=== PATIENT | male | born 1965 | race Caucasian/White ===

== ENCOUNTER → 2020-03-27 11:17 | Outpatient (CLI) | payer OTHER, SELFPAY ==
--- NOTE | 2020-03-27 11:22 | XR_ITS ---
PROCEDURE: XR FOOT WT BEARING LT 3V CLINICAL INDICATION: pain Foot pain COMPARISON: No exams were available for comparison FINDINGS: No fracture or dislocation. No lytic or blastic change. There is normal mineralization. The joint spaces are well-preserved. No significant degenerative/arthritic changes. No erosive changes evident. Other findings:There is a small well-circumscribed calcific density posterior to the posterior talar process and could represent an old fracture or an atypical os trigonum. IMPRESSION: No acute fracture. Old posterior talar process fracture versus os trigonum Dictated by: Santos Galdamez MD 03/27/2020 14:09 Electronically signed by Santos Galdamez MD in [place] 03/27/2020 14:09
--- NOTE | 2020-03-27 11:22 | XR_ITS ---
PROCEDURE: XR FOOT WT BEARING RT 3V CLINICAL INDICATION: pain COMPARISON: No exams were available for comparison FINDINGS: No fracture or dislocation. No lytic or blastic change. There is normal mineralization. The joint spaces are well-preserved. No significant degenerative/arthritic changes. No erosive changes evident. Other findings:Mildly prominent posterior talar process. Calcaneal spurs present. IMPRESSION: No acute findings. Dictated by: Santos Galdamez MD 03/27/2020 14:16 Electronically signed by Santos Galdamez MD in [place] 03/27/2020 14:16
--- NOTE | 2020-03-27 11:22 | XR_ITS ---
PROCEDURE: XR ANKLE WT BEARING LT MIN 3V CLINICAL INDICATION: pain COMPARISON: XR ANKLE WT BEARING RT MIN 3V from 03/27/2020 FINDINGS: No fracture or dislocation. No lytic or blastic change. There is normal mineralization. The joint spaces are well-preserved. No significant degenerative/arthritic changes. No erosive changes evident. Other findings:There are 2 well-circumscribed calcific densities along the posterior aspect of the talocalcaneal joint and may represent segmented os trigonum is versus an old os trigonum fracture. IMPRESSION: Bipartite os trigonum versus old posterior talar process fracture otherwise negative Dictated by: Santos Galdamez MD 03/27/2020 14:10 Electronically signed by Santos Galdamez MD in [place] 03/27/2020 14:10
--- NOTE | 2020-03-27 11:22 | XR_ITS ---
PROCEDURE: XR ANKLE WT BEARING RT MIN 3V CLINICAL INDICATION: pain Ankle pain COMPARISON: No exams were available for comparison FINDINGS: There is a small calcific density at the tip of the lateral malleolus. This is well-circumscribed and may be due to an old injury. There is some minimal sclerosis along the distal aspect the tibia slightly medial to midline. There is an os trigonum as a normal variant. No fracture or dislocation. IMPRESSION: No acute finding. Suspect old avulsion fracture at the tip of the lateral malleolus Dictated by: Santos Galdamez MD 03/27/2020 14:01 Electronically signed by Santos Galdamez MD in [place] 03/27/2020 14:01
== END ==
PROVIDERS: PCP Family Medicine; Visit Provider Podiatrist
DX: M25.572 Pain in left ankle and joints of left foot (principal); M25.571 Pain in right ankle and joints of right foot
CPT/HCPCS: 73610; 73630

== ENCOUNTER 2020-03-27 11:54 | Outpatient (RCR) | payer OTHER, SELFPAY | END 2020-03-27 12:15 | disposition home or self-care (01) | LOC: PT 11:54 | PROVIDERS: Visit Provider Podiatrist | DX: M25.372 Other instability, left ankle (principal) | CPT/HCPCS: 97760 ==

== ENCOUNTER → 2020-06-13 14:44 | Outpatient (CLI) | payer OTHER, SELFPAY ==
--- NOTE | 2020-06-13 14:44 | MR_ITS ---
PROCEDURE: MR ANKLE LT WO/W CON CLINICAL INDICATION: chronic left ankle pain Chronic ankle pain, ankle instability, possible peroneal tendinitis versus tear, chronic ankle ligament tears, failing conservative treatment, peroneal tendinitis COMPARISON: CR XR ANKLE WT BEARING LT MIN 3V from 03/27/2020 TECHNIQUE: Routine multiplanar multi echo sequences are performed without and with gadolinium enhancement. FINDINGS: The tibiofibular ligaments have an unremarkable appearance. There is an abnormal appearing ATFL consistent with tear of the ATFL with some fluid present at the area of the tear at the talar region. The PT FL appears intact as does the deltoid ligament. The posterior tibialis, flexor hallucis longus, and flexor digitorum longus tendons have an unremarkable appearance as does the Achilles tendon. The peroneal tendons have an abnormal appearance. Distal to the retro malleolar groove there is thickening of the peroneus longus and brevis tendon with increased signal centrally within the peroneus longus tendon suggesting a split tear versus tendon sprain. Small amount fluid is present around the peroneal tendon sheath. There is also increased linear T2 signal within the distal aspect of the peroneus brevis tendon which could also be due to an additional split tear versus tendinopathy/tendinosis. Complete tear is are not felt to be present. IMPRESSION: The 1. Tear of the ATFL with small amount of fluid at the ligament site. 2. There is some thickening of the peroneal tendons proximal to the retro malleolar groove with small amount fluid around the tendon sheath. 3. Split tear/partial tear of the peroneus longus and brevis tendons versus tendinopathy/tendinosis Dictated b Santos Galdamez MD 06/19/2020 11:37 Santos Galdamez MD in [place] 06/19/2020 11:37
== END ==
PROVIDERS: PCP Family Medicine; Visit Provider Podiatrist
DX: M25.372 Other instability, left ankle (principal); M76.72 Peroneal tendinitis, left leg
CPT/HCPCS: 73723; A9576

== ENCOUNTER → 2020-07-17 16:36 | Outpatient (CLI) | payer OTHER, SELFPAY ==
--- NOTE | 2020-07-17 | ECG_ITS ---
APPROVED REPORT Exam: Resting ECG HR:74 bpm ECG Measurements Heart Rate 74 AXES MI 124 P 67 QRSd 76 QRS 45 QT 352 T 38 QTc 390 <Conclusion> Normal sinus rhythm Normal ECG Electronically signed by : Demetrio Chavez, 07/18/2020 12:00:09
--- NOTE | 2020-07-17 | XR_ITS ---
PROCEDURE: XR CHEST 2V CLINICAL HISTORY: Shortness of air COMPARISON: No exams were available for comparison FINDINGS: The cardiomediastinal silhouette and pulmonary vascularity are within normal limits. The lungs are clear without infiltrates, suspicious nodules, or pleural effusions. No acute bony abnormalities. IMPRESSION: No acute findings. Dictated by: Santos Galdamez MD 07/17/2020 22:04 Santos Galdamez MD in [place] 07/17/2020 22:04
[2020-07-17 18:46] LABS: Basophils % 0.3 % (0.1-2.0); Eosinophils # 0.1 K/mm3 (0.0-0.4); Eosinophils % 1.4 % (0.1-12.0); Hematocrit 43.9 % (42.0-52.0); Hemoglobin 14.7 g/dL (14.1-18.0); Lymphocytes # 1.6 K/mm3 (0.7-4.5); Lymphocytes % 22.3 % (10-50); Mean Corpuscular HGB Conc 33.4 g/dL (31.8-35.4); Mean Corpuscular Hemoglobin 33.3 pg (27.0-31.2); Mean Corpuscular Volume 99.5 fl (80-94); Monocytes # 0.6 K/mm3 (0.1-1.0); Monocytes % 7.7 % (1.7-9.3); Neutrophils # 4.9 K/mm3 (1.8-7.8); Neutrophils % 68.3 % (37.0-80.0); Platelet Count 180 K/mm3 (142-424); Red Blood Count 4.41 M/mm3 (4.60-6.20); Red Cell Distribution Width 13.6 % (11.5-17.5); White Blood Count 7.2 K/mm3 (4.8-10.8)
[2020-07-17 18:53] LABS: Alanine Aminotransferase 21 U/L (12-78); Albumin Level 3.9 g/dl (3.5-5.0); Albumin/Globulin Ratio 1.6 (1.1-1.8); Alkaline Phosphatase 99 U/L (38-126); Anion Gap 10.9 mEq/L (5-15); Aspartate Amino Transferase 30 U/L (17-59); Bilirubin,Total 0.6 mg/dl (0.2-1.3); Blood Urea Nitrogen 15 mg/dl (9-20); Calcium 9.5 mg/dl (8.4-10.2); Carbon Dioxide 36 mmol/L (22.0-30.0); Chloride 97 mmol/L (98-107); Estimated Glomerular Filt Rate 78 ml/min (>60); GFR (African American) 94 ML/MIN (>60); Globulin 2.4 g/dL (1.3-3.2); Glucose 68 mg/dl (74-100); Potassium 3.9 mmoL/L (3.5-5.1); Sodium 140 mmol/L (136-145); Total Protein,Serum 6.3 g/dl (6.3-8.2)
[2020-07-17 19:10] LABS: 25-OH Vitamin D, Total 44.7 ng/mL (30-100)
== END ==
PROVIDERS: PCP Family Medicine; Visit Provider Podiatrist
DX: Z01.818 Encounter for other preprocedural examination (principal); M25.372 Other instability, left ankle
CPT/HCPCS: 36415; 71046; 80053; 82306; 85025; 93005

== ENCOUNTER → 2020-07-26 11:58 | Outpatient (CLI) | payer OTHER, SELFPAY ==
[2020-07-26 12:33] LABS: Basophils % 0.4 % (0.1-2.0); Eosinophils # 0.1 K/mm3 (0.0-0.4); Eosinophils % 1.1 % (0.1-12.0); Hematocrit 47.7 % (42.0-52.0); Hemoglobin 15.8 g/dL (14.1-18.0); Lymphocytes # 1.5 K/mm3 (0.7-4.5); Lymphocytes % 20.3 % (10-50); Mean Corpuscular HGB Conc 33.1 g/dL (31.8-35.4); Mean Corpuscular Hemoglobin 32.4 pg (27.0-31.2); Mean Platelet Volume 7.4 fl (7.4-10.4); Monocytes # 0.4 K/mm3 (0.1-1.0); Monocytes % 5.7 % (1.7-9.3); Neutrophils # 5.3 K/mm3 (1.8-7.8); Neutrophils % 72.5 % (37.0-80.0); Platelet Count 183 K/mm3 (142-424); Red Blood Count 4.86 M/mm3 (4.60-6.20); Red Cell Distribution Width 12.8 % (11.5-17.5); White Blood Count 7.3 K/mm3 (4.8-10.8)
[2020-07-26 14:20] LABS: Chloride 99 mmol/L (98-107); Sodium 142 mmol/L (136-145)
[2020-07-26 14:23] LABS: Alanine Aminotransferase 25 U/L (12-78); Albumin Level 4.7 g/dl (3.5-5.0); Albumin/Globulin Ratio 1.8 (1.1-1.8); Alkaline Phosphatase 97 U/L (38-126); Aspartate Amino Transferase 35 U/L (17-59); Bilirubin,Total 0.7 mg/dl (0.2-1.3); Blood Urea Nitrogen 32 mg/dl (9-20); Carbon Dioxide 34 mmol/L (22.0-30.0); Estimated Glomerular Filt Rate 63 ml/min (>60); GFR (African American) 76 ML/MIN (>60); Globulin 2.6 g/dL (1.3-3.2); Total Protein,Serum 7.3 g/dl (6.3-8.2)
[2020-07-26 14:24] LABS: Calcium 10.8 mg/dl (8.4-10.2); Glucose 68 mg/dl (74-100)
[2020-07-26 14:44] LABS: 25-OH Vitamin D, Total 56.3 ng/mL (30-100)
[2020-07-26 14:55] LABS: Coronavirus 19 IgG Antibody Negative (Negative); Coronavirus 19 IgM Antibody Negative (Negative)
== END ==
PROVIDERS: Visit Provider Podiatrist
DX: M25.372 Other instability, left ankle (principal); Z20.828 Contact with and (suspected) exposure to other viral communicable diseases; E55.9 Vitamin D deficiency, unspecified
CPT/HCPCS: 36415; 80053; 82306; 85025; 86328

== ENCOUNTER 2020-07-27 07:44 | Day surgery (SDC) | payer OTHER, SELFPAY ==
[2020-07-25 14:59] VITALS: BMI 21.2
[2020-07-27] VITALS (10 sets, daily range): BP systolic 114–141; BP diastolic 56–78; PULSE 67–86; RESP 15–20; TEMP 36.3–43; O2SAT 95–100
--- NOTE | 2020-07-27 | XR_ITS ---
PROCEDURE: XR ANKLE LT 2V CLINICAL INDICATION: Tendon repair COMPARISON: CR XR ANKLE WT BEARING RT MIN 3V from 03/27/2020 FINDINGS: A single images submitted with the C-arm showing post syndesmotic repair changes with a lateral bone plate at the distal fibula with a translucent fixator and a metallic button medially at the distal tibia. Fluoroscopy time: 35 seconds IMPRESSION: Status post syndesmotic repair with fluoro guidance Dictated by: Santos Galdamez MD 07/27/2020 14:08 Santos Galdamez MD in [place] 07/27/2020 14:08
--- NOTE | 2020-07-27 13:00 | XR_ITS ---
PROCEDURE: XR ANKLE LT MIN 3V CLINICAL INDICATION: Post op ankle stabilization Follow-up ankle surgery COMPARISON: CR XR ANKLE WT BEARING RT MIN 3V from 03/27/2020 CR XR ANKLE WT BEARING LT MIN 3V from 03/27/2020 FINDINGS: Status post syndesmotic repair with lateral distal fibular bone plate with translucent fixator and metallic washer along the medial aspect of the distal tibia with good alignment and preservation of the ankle mortise. Cast is in place and there are skin clips noted. IMPRESSION: Good alignment status post syndesmotic repair of the distal tib fib Dictated by: Santos Galdamez MD 07/27/2020 17:37 Santos Galdamez MD in [place] 07/27/2020 17:37
--- NOTE | 2020-07-27 14:44 | P.PN_ITS ---
[facility] Anesthesia Checklist - Patient Identification Patient Identification: Arm Band, Verbal (Name & ) - Structural Data Admitted From: Home Planned Operative Procedure/s: left ankle repair Consent for Planned Operative Procedure(s) Verified: Yes Verified Documents: History and Physical - NPO Status Verified Time NPO: 00:00 - Chart Verification Results Verified: CBC, BMP - Additional verifications Patient : No Anesthesia Reactions: Yes (NAUSEA) Hx Blood Transfusions: No Blood Transfusion Reaction: No Cephalosporin Allergy: No Previous Colonoscopy: Yes - Cardiovascular Assessment Heart Sounds: S1 & S2 Pulse Strength: Baseline Pulse Rhythm: Regular Peripheral Edema: No - Airway Assessment C-Spine Mobility Assessed: Yes TMJ Mobility Assessed: Yes Dentition: Edentulous - Neurological Assessment Level of Consciousness: Awake, Alert, Appropriate Hx Seizures: No Numbness or tingling in extremities: No - Anesthesia Plan Anesthesia Risk discussed: Yes Anesthesia Plan: Verified ASA Class: II Anesthesia Type: General w/block [facility] History I have reviewed the patient's past medical history: Yes Medical History: Reports:: Anxiety, Depression, Gastroesophageal Reflux Disease(GERD), Hyperlipidemia, Migraine, MRSA Denies:: Cancer, Diabetes Mellitus Type 1, Diabetes Mellitus Type 2, Internal Pacemaker, Seizures *Have you ever received a pneumonia vaccine?: No *Have you received a flu vaccine this season?: No Other Medical History: Reports: Arthritis, Other. Denies: Blood Transfusion Reaction Anesthesia experience/problems:: none Laterality Cases: Right: Arthroscopy Knee, Carpal Tunnel Release Other Surgeries: Yes: Other. No: Pacemaker Amputation: No Fractures: No - *Social History Smoking Status: Former smoker Alcohol Intake: never Alcohol Intake Frequency:: other Substance Use Type: denies use *Occupational Status:: employed Housing: house Household Members: family *Travel in the last 8 weeks: None - Psychiatric History Pschychiatric History:: Reports:: Anxiety, Depression Family Hx:: Cancer
--- NOTE | 2020-07-27 14:45 | HMH.ANESI ---
[facility] Anesthesia Record Part I Intake, IV Amount: 900 Estimated blood loss (mL): 30 Urine output (mL): 0 Blood Products used (#): none Blood Pressure: 122/63 SaO2: 95 Pulse Rate: 86 Respiratory Rate: 18 Temperature: 97.6 F Patient is:: Awake, Stable Stable to PACU at:: 14:36
--- NOTE | 2020-07-27 14:55 | HMH.OPNOTE ---
Date of procedure: 07/27/20 Pre-op Diagnosis:: 1. Left chronic ankle instability 2. Left ATFL tear 3. Left peroneal tendon (brevis) tear 4. Left peroneal tendon (longus) tear 5. Left ankle synovitis 6. Left gastrocnemius equinus 7. Left syndesmosis sprain 8. Left ankle pain 9. Left peroneal retinaculum tear Post-op Diagnosis:: Same Procedure performed:: 1. Left foot peroneal tendon debridement and repair x2 2. Left peroneal tendon anastomosis, application of Graft Jacket 3. Left ankle synovectomy 4. Left repair of anterior talofibular ligament, modified Brostrum lateral ankle ligament stabilization 5. Left ankle medial arthrotomy 6. Left open reduction internal fixation syndesmosis 7. Left gastrocnemius equinus 8. Application of amniotic tissue graft 9. Application of posterior splint Surgeon:: Alicia Hill DPM OPERATIONS RESEARCH ANALYST:: Lb Marx Anesthesia: GETA, regional (Left popliteal nerve block) Estimated blood loss (mL): 30 Clinical Note:: Mr. Herbert is a 54 y/o male who presents with Left Chronic Ankle Instability: X-rays 3 views weightbearing bilateral foot and ankle taken 03/27/2020 evaluated by myself. X-rays show forefoot alignment within normal limits. Mild flexion deformities of the DIPJ and PIPJ noted bilaterally. Accessory navicular bone bilaterally. Bilateral inferior and posterior heel spurs noted. Left posterior heel spur larger than right and right inferior heel spur larger than left. Ankle alignment within normal limits with no evidence of fracture or dislocation. Some mild spurring noted off the medial talus bilaterally. MRI LEFT ANKLE, 06/13/20: FINDINGS: The tibiofibular ligaments have an unremarkable appearance. There is an abnormal appearing ATFL consistent with tear of the ATFL with some fluid present at the area of the tear at the talar region. The PT FL appears intact as does the deltoid ligament. The posterior tibialis, flexor hallucis longus, and flexor digitorum longus tendons have an unremarkable appearance as does the Achilles tendon. The peroneal tendons have an abnormal appearance. Distal to the retro malleolar groove there is thickening of the peroneus longus and brevis tendon with increased signal centrally within the peroneus longus tendon suggesting a split tear versus tendon sprain. Small amount fluid is present around the peroneal tendon sheath. There is also increased linear T2 signal within the distal aspect of the peroneus brevis tendon which could also be due to an additional split tear versus tendinopathy/tendinosis. Complete tear is are not felt to be present. IMPRESSION: 1. Tear of the ATFL with small amount of fluid at the ligament site. 2. There is some thickening of the peroneal tendons proximal to the retro malleolar groove with small amount fluid around the tendon sheath. 3. Split tear/partial tear of the peroneus longus and brevis tendons versus tendinopathy/tendinosis. The patient has some relief of symptoms using Mobic, Voltaren and immobilization in the fracture boot. Rest helps but pain still noted daily. Pain worse with activity and work. Patient works as a mailman and walks [id number] steps and up to 13-16 miles daily. Although pain is somewhat improved the symptoms have not improved and on physical exam patient still has a positive anterior drawer and instability with a unsteady antalgic gait. I explained for long-term standing instability conservative care includes NSAIDs, immobilization, bracing, stretching and physical therapy. Chronic instability and symptoms that do not resolve with conservative care may need to be surgically addressed via tightening ligaments. We discussed surgery in great detail including repairing of the ankle ligaments, debridement and repair of the brevis and longus peroneal tendons. I recommend minimum 6 weeks nonweightbearing then transition to PWB. Realistic may be 3 months healing before he is fully comfortable walking that distance. Patient has failed conservative care. We disc
--- NOTE | 2020-07-27 16:23 | HMH.ANESII ---
[facility] Anesthesia Record Part II Discharge Time: 14:46 Destination: Surgical Day Care (OP Surgery) PACU nurse assessment reviewed?: Yes Patient Condition:: Good Anesthesia Complications:: None Swallowing reflex intact?: Yes Cyanosis?: No Blood Pressure: 114/61 Pulse Rate: 76 Temperature: 97.6 F Mental Status: Alert & Oriented Pain level:: 0 Nausea and/or vomitting:: None Intake, IV Amount: 25
== END 2020-07-27 15:40 | disposition home or self-care (01) ==
PROVIDERS: PCP Family Medicine; Visit Provider Podiatrist
PROC: (CPT 15275; principal; 2020-07-27 09:15)
DX: M24.471 Recurrent dislocation, right ankle (principal); M66.88 Spontaneous rupture of other tendons, other sites; M24.572 Contracture, left ankle; M66.272 Spontaneous rupture of extensor tendons, left ankle and foot
CPT/HCPCS: 15275; 27695; 27829; 27675; 28208; C5275; 73600; 73610; 96374; C1713; C1762; C1776; J2405; Q4107; Q4211

== ENCOUNTER → 2020-08-23 12:35 | Outpatient (CLI) | payer OTHER, SELFPAY ==
--- NOTE | 2020-08-23 12:39 | XR_ITS ---
PROCEDURE: XR ANKLE WT BEARING LT MIN 3V CLINICAL INDICATION: postop pain, fall COMPARISON: CR XR ANKLE WT BEARING RT MIN 3V from 03/27/2020 CR XR ANKLE WT BEARING LT MIN 3V from 03/27/2020 CR XR FOOT WT BEARING LT 3V from 03/27/2020 CR XR ANKLE LT 2V from 07/27/2020 CR XR ANKLE LT MIN 3V from 07/27/2020 CR XR FOOT WT BEARING LT 3V from 08/23/2020 FINDINGS: Status post syndesmotic repair with lateral bone plate at the distal fibula and medial metallic button at the distal tibia. There is good alignment with preservation of the ankle mortise. Small anchor screw is present in the distal aspect of the fibula. These findings are unchanged. The cast has been removed. No acute finding of the foot. There is a type 1 os navicularis. IMPRESSION: Good alignment postsurgical changes as described above. Dictated by: Santos Galdamez MD 08/23/2020 16:33 Santos Galdamez MD in [place] 08/23/2020 16:33
== END ==
PROVIDERS: PCP Family Medicine; Visit Provider Podiatrist
DX: Z98.890 Other specified postprocedural states (principal)
CPT/HCPCS: 73610; 73630

== ENCOUNTER 2020-11-01 15:00 | Outpatient (RCR) | payer OTHER, SELFPAY ==
--- NOTE | 2020-09-13 09:56 | HMH.PTOPEV ---
PT Outpatient Evaluation Rehab PT Outpatient Evaluation Start: 09/13/20 09:07 Freq: Status: Active Protocol: Document 09/13/20 09:45 AIDAN (Rec: 09/13/20 09:56 PHORSURAJ [id number]) Electronically Signed By Isaias Henderson, PT 09/13/20 09:45 Outpatient Therapy Subjective History Subjective History Pt is 54 yowm who presents ~ 7 wks S/P L peroneal tendon repair with lateral ankle fixation. He reports expected post-op pain and stiffness with mild edema remaining. He has intermittent burning, tingling pain in the L foot. He is allowed to begin PWB tomorrow with cam walker. He has PMH of anxiety, depression , HL, migraines, MRSA. Chief Complaint Pain,Stiff Symptom Type Ache,Burning,Tingling Symptoms Relieved By Rest/Positioning,Ice Symptoms Aggravated By Physical Activity Prior Functional Limitations None Current Functional Limitations Standing,Recreation Activity, Walking Symptom Description Constant but Variable Level of pain today (0-10) 2 Pain scale - at its worst (0-10) 6 Ankle/Foot Eval Assistive Device Ambulation Assistive Device Axillary Crutches Palpation Tenderness left Ankle/Foot Palpation Findings Tenderness ATF TTP positive ROM Ankle/Foot Dorsiflexion w/Knee Extended 0 Active Range Motion (degrees) Ankle/Foot Dorsiflexion w/Knee Extended 0-2 Passive Range (degrees) Ankle/Foot Plantar Flexion Active Range 0-40 of Motion (degrees) Ankle/Foot Plantar Flexion Passive Range 0-43 of Motion (degrees) Ankle/Foot Eversion Active Range of 0-4 Motion (degrees) Ankle/Foot Eversion Passive Range of 0-5 Motion (degrees) Ankle/Foot Inversion Active Range of 0-10 Motion (degrees) Ankle/Foot Inversion Passive Range of 0-13 Motion (degrees) MMT Ankle Dorsiflexion Strength Grade 3+ Fair+ Ankle Plantarflexion Strength Grade 3+ Fair+ Foot Eversion Strength Grade 2 Poor Foot Inversion Strength Grade 3+ Fair+ Outpatient Therapy Assessment Impairments Problems/Impairmments Palpation Tenderness,Impaired Range of Motion,Impaired Strength,Impaired Endurance, Impaired Gait Pattern,Impaired Walking,Impaired Standing, Impaired Work Activities, Increa
== END 2020-11-01 15:05 | disposition home or self-care (01) ==
LOC: PT 15:00
PROVIDERS: PCP Family Medicine; Visit Provider Podiatrist
DX: S86.312A Strain of muscle(s) and tendon(s) of peroneal muscle group at lower leg level, left leg, initial encounter; M76.72 Peroneal tendinitis, left leg; M66.88 Spontaneous rupture of other tendons, other sites
CPT/HCPCS: 97010; 97014; 97033; 97035; 97110; 97112; 97140; 97163; 97530; G0283

== ENCOUNTER → 2021-02-19 16:26 | Outpatient (CLI) | payer OTHER, SELFPAY ==
--- NOTE | 2021-02-19 16:30 | XR_ITS ---
PROCEDURE: XR FOOT WT BEARING LT 3V CLINICAL INDICATION: post-op Pain COMPARISON: CR XR FOOT WT BEARING LT 3V from 03/27/2020 CR XR FOOT WT BEARING RT 3V from 03/27/2020 CR XR FOOT WT BEARING LT 3V from 08/23/2020 FINDINGS: No fracture or dislocation. No lytic or blastic change. There is normal mineralization. The joint spaces are well-preserved. No significant degenerative/arthritic changes. No erosive changes evident. Other findings:1 os navicularis IMPRESSION: Negative left foot Dictated by: Santos Galdamez MD 02/19/2021 17:37 Santos Galdamez MD in [place] 02/19/2021 17:37
--- NOTE | 2021-02-19 16:30 | XR_ITS ---
PROCEDURE: XR ANKLE WT BEARING LT MIN 3V CLINICAL INDICATION: post-op pain COMPARISON: CR XR ANKLE WT BEARING LT MIN 3V from 03/27/2020 CR XR ANKLE LT MIN 3V from 07/27/2020 CR XR ANKLE LT 2V from 07/27/2020 CR XR ANKLE WT BEARING LT MIN 3V from 08/23/2020 CR XR CALCANEUS LT MIN 2V from 02/19/2021 FINDINGS: Prior ORIF distal tib fib with lateral fibular bone plate and translucent fixator at the distal tib fib with good alignment. The ankle mortise is preserved. There is an anchor screw within the distal aspect the lateral malleolus. Talar dome has an unremarkable appearance. There is a small os trigonum as well as mildly prominent posterior talar process. Small enthesophyte noted at the Achilles insertion. The calcaneus has an otherwise unremarkable appearance. IMPRESSION: Postsurgical change, no acute finding Dictated by: Santos Galdamez MD 02/19/2021 17:39 Santos Galdamez MD in [place] 02/19/2021 17:39
== END ==
PROVIDERS: PCP Family Medicine; Visit Provider Podiatrist
DX: M25.572 Pain in left ankle and joints of left foot (principal); M25.872 Other specified joint disorders, left ankle and foot; Q66.72 Congenital pes cavus, left foot; Z98.890 Other specified postprocedural states
CPT/HCPCS: 73610; 73630; 73650

== ENCOUNTER 2021-02-20 13:57 | Emergency (ER) | payer OTHER, SELFPAY ==
[2021-02-20 13:57] VITALS: BP 145/79; PULSE 93; RESP 18; TEMP 36.5; O2SAT 95; BMI 24.0
--- NOTE | 2021-02-20 13:58 | XR_ITS ---
PROCEDURE: XR FEMUR RT 2V CLINICAL INDICATION: dog bite Laceration from dog bite COMPARISON: No exams were available for comparison FINDINGS: No fracture or dislocation. No lytic or blastic change. There is normal mineralization. Mild osteoarthritic changes are present at the hip and at the knee. No acute fracture or dislocation. Other findings:Lucency is noted along the soft tissues of the proximal lateral thigh and could be related to underlying laceration. Please correlate with patient's area of injury. Small well-circumscribed calcific densities are present at the tip of the greater trochanter consistent with unfused ossification centers. IMPRESSION: No acute fracture. Lucency of the proximal lateral thigh consistent with laceration Dictated by: Santos Galdamez MD 02/20/2021 14:57 Santos Galdamez MD in [place] 02/20/2021 14:57
--- NOTE | 2021-02-20 13:58 | XR_ITS ---
PROCEDURE: XR HAND RT MIN 3V CLINICAL INDICATION: dog bite Injury with pain COMPARISON: No exams were available for comparison FINDINGS: No fracture or dislocation. No lytic or blastic change. There is normal mineralization. The joint spaces are well-preserved. No significant degenerative/arthritic changes. No erosive changes evident. Other findings:There is some lobularity the skin surface along the ulnar aspect of the wrist and may be related to area of laceration or skin fold. No radiopaque foreign body apparent. IMPRESSION: No acute fracture or radiopaque foreign body. Dictated by: Santos Galdamez MD 02/20/2021 15:02 Santos Galdamez MD in [place] 02/20/2021 15:02
--- NOTE | 2021-02-20 13:58 | XR_ITS ---
PROCEDURE: XR PELVIS 1-2V CLINICAL INDICATION: dog bite Injury with pain COMPARISON: No exams were available for comparison TECHNIQUE: XR Pelvis AP View FINDINGS: No fracture or dislocation is evident. No significant degenerative change. There is a tubular device over the perineal region. IMPRESSION: No acute findings. Dictated by: Santos Galdamez MD 02/20/2021 15:01 Santos Galdamez MD in [place] 02/20/2021 15:01
[2021-02-20 14:30] VITALS: BP 133/66
--- NOTE | 2021-02-20 14:36 | HMH.EDANIB ---
ED Disposition Clinical Impression: Dog bite Disposition: Home, Self-Care Condition on Discharge: Good Instructions: Animal Bites Additional Instructions: Please return to the emergency department or your primary care physician within the next 10 days for suture removal. Take antibiotics as prescribed. Return for any redness warmth or fever or purulent drainage to the site within 24 hours. Prescriptions: Amoxicillin/Potassium Clav [Augmentin 875-125 Tablet] 1 tab PO Q12H 7 Days #14 tab Transmission Status: Pending to [facility] Referrals: Cleveland Piedra [Primary Care Provider] - - Critical Care Critical Care Time: No Attestation: On 02/20/21, the high probability of a clinically significant, sudden or life threatening deterioration of the following system(s) required my full and direct attention, intervention and personal management. The time I documented below is in addition to time spent performing reported procedures but includes the following listed in this critical care notation. Medical Decision Making - Medical Records Medical records reviewed: Yes: I reviewed the patient's medical records. - Joaquín Inquiry Pt receiving controlled substance: No Vital Signs: 02/20/21 13:57 02/20/21 14:30 Temperature 97.7 F Temperature Source Oral Pulse Rate [Right Radial] 93 H Respiratory Rate 18 Blood Pressure 133/66 Blood Pressure [Right Arm] 145/79 H Blood Pressure Mean 95 Blood Pressure Mean [Right Arm] 101 Blood Pressure Source [Right Arm] Automatic Cuff 02 Sat by Pulse Oximetry 95 Oxygen Delivery Method Room Air Orders (Tests/Meds): ED MEDICATIONS Discontinued Medications Generic Name Dose Route Start Last Admin Trade Name Freq PRN Reason Stop Dose Admin Tetanus/Diphtheria Toxoids 0.5 ml 02/20/21 13:59 02/20/21 14:51 Tetanus-Diphth Toxoid, Adult 0.5ml Syr IM 02/20/21 14:00 0.5 ml .ONCE ONE Administration Medical Decision Narrative: 55-year-old male with dog bite. He is right hip hematoma and a right hand laceration. The right hand laceration was complex however extort explored extensively and no evidence of foreign body or bony or tendon or nerve injury. Given strict return precautions for this for possible to likely infection and given antibiotics as well. It did need to be closed however because of the location and the extensive soft tissue damage. X-rays showed no evidence of foreign body or bony abnormality. Tetanus has been updated. Plan to discharge with return precautions antibiotics and follow-up recommendations Animal Bite HPI - General Chief Complaint: Animal Bite Stated Complaint: dog bite Time Seen by Provider: 02/20/21 14:00 Mode of Arrival: EMS Limitations: No Limitations Description of Symptoms (Recalled from ER Triage Doc. by RN): Pt presents to ED after a dog bite while at work. Pt has puncture wounds to R hand, L thigh and R knee. Pt has raised area to L outer thigh with puncture wounds. - History of Present Illness HPI narrative: 55-year-old male presents after pitbull bite. 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 He was bitten on his right hand and also on his right leg. He denies other trauma. He says his last tetanus shot was 10 days ago. No active bleeding at this time. The pain is constant nonradiating mainly in his hand where the laceration is deepest. He has no numbness or tingling to this distal fingertips Onset (ago): hour(s) (1) Animal: dog Mechanism: bite - Related Data Home Medications Medication Instructions Recorded Confirmed atorvastatin 20 mg tablet 20 mg PO DAILY 10/23/19 02/19/21 carbidopa 25 mg-levodopa 100 mg 1 tab PO QHS 10/23/19 02/19/21 tablet gabapentin 800 mg tablet 800 mg PO BID 10/23/19 02/19/21 mirtazapine 45 mg tablet 45 mg PO DAILY 10/23/19 02/19/21 prazosin 2 mg capsule 2 mg PO QHS 10/23/19 02/19/21 testosterone cypionate 200 mg/mL 200 mg IM QMONTH ml 01/14
[2021-02-20 16:04] VITALS: BP 133/66; PULSE 79; RESP 18; TEMP 36.5; O2SAT 95
== END 2021-02-20 16:04 | disposition home or self-care (01) ==
PROVIDERS: Emergency Provider Emergency Medicine; PCP Family Medicine
DX: S61.411A Laceration without foreign body of right hand, initial encounter (principal); S80.212A Abrasion, left knee, initial encounter; W54.0XXA Bitten by dog, initial encounter; Y92.69 Other specified industrial and construction area as the place of occurrence of the external cause; Y99.0 Civilian activity done for income or pay; Z23 Encounter for immunization; F41.8 Other specified anxiety disorders; K21.9 Gastro-esophageal reflux disease without esophagitis; E78.5 Hyperlipidemia, unspecified; Z87.891 Personal history of nicotine dependence
CPT/HCPCS: 12002; 72170; 73130; 73552; 90471; 90714; 99283

== ENCOUNTER → 2021-02-26 13:01 | Outpatient (CLI) | payer OTHER, SELFPAY ==
[2021-02-26 14:44] LABS: Blood Urea Nitrogen 19 mg/dl (9-20); Estimated Glomerular Filt Rate 88 ml/min (>60); GFR (African American) 106 ML/MIN (>60)
== END ==
PROVIDERS: Visit Provider Podiatrist
DX: M76.72 Peroneal tendinitis, left leg (principal)
CPT/HCPCS: 36415; 82565; 84520

== ENCOUNTER → 2021-02-27 13:31 | Outpatient (CLI) | payer OTHER, SELFPAY ==
--- NOTE | 2021-02-27 13:31 | MR_ITS ---
PROCEDURE: MR ANKLE LT WO/W CON CLINICAL INDICATION: rule out 5th met fracture Prior hx ankle surgery July 2020. Continued ankle pain with walking. Evaluate the peroneal tendons. Ankle instability, peroneal tendinitis, Achilles tendinitis, pes cavus, pain COMPARISON: MR MR ANKLE LT WO/W CON from 06/13/2020 CR XR ANKLE WT BEARING LT MIN 3V from 02/19/2021 CR XR FOOT WT BEARING LT 3V from 02/19/2021 TECHNIQUE: Routine multiplanar multi echo sequences are performed without gadolinium enhancement. FINDINGS: Ill-defined increased T2 signal involves the 5th metatarsal suggesting stress reaction with no obvious fracture. There is orthopedic hardware in the distal tibia and fibula from syndesmosis repair. There is a small ankle joint effusion. The tibiofibular syndesmosis appears intact. The ATFL appears thickened with loss of the normal low T2 signal and could be related to prior repair. The PT FL appears intact. The deltoid ligament has an unremarkable appearance. Calcaneofibular ligament is not identified. The posterior tibialis, flexor hallucis longus, flexor digitorum longus, Achilles tendon, and anterior extensor tendons appear intact. Cannot differentiate between the peroneal longus and brevis tendon and may be related to the history of repair and anastomosis. The sinus tarsi and plantar fascia have an unremarkable appearance. IMPRESSION: 1. Suspected stress reaction of the 5th metatarsal. No definite fracture line. 2. Postoperative changes of the peroneal tendons and distal fibular and tibial syndesmosis 3. Abnormal appearance of the ATFL possibly due to scarring or prior repair. Please correlate with clinical findings and surgical history. Dictated by: Santos Galdamez MD 03/09/2021 18:43 Santos Galdamez MD in [place] 03/09/2021 18:43
== END ==
PROVIDERS: PCP Family Medicine; Visit Provider Podiatrist
DX: M76.72 Peroneal tendinitis, left leg (principal)
CPT/HCPCS: 73723; A9576

== ENCOUNTER 2021-04-26 11:27 | Emergency (ER) | payer OTHER, SELFPAY ==
[2021-04-26 11:32] VITALS: BP 136/65; PULSE 98; RESP 18; TEMP 36.8; O2SAT 99; BMI 22.8
[2021-04-26 11:54] VITALS: BMI 22.8
--- NOTE | 2021-04-26 11:55 | XR_ITS ---
PROCEDURE: XR FOOT LT MIN 3V CLINICAL INDICATION: fall Pain COMPARISON: CR XR FOOT WT BEARING LT 3V from 03/27/2020 CR XR FOOT WT BEARING RT 3V from 03/27/2020 CR XR FOOT WT BEARING LT 3V from 08/23/2020 CR XR FOOT WT BEARING LT 3V from 02/19/2021 FINDINGS: There is a nondisplaced transverse fracture involving the proximal aspect of the 5th metatarsal. There is good alignment of the fracture fragments. Postsurgical changes distal tib fib. Other findings:None. IMPRESSION: Nondisplaced fracture proximal aspect of the 5th metatarsal Dictated by: Santos Galdamez MD 04/26/2021 12:12 Santos Galdamez MD in [place] 04/26/2021 12:12
[2021-04-26 12:03] VITALS: BP 123/68; PULSE 76; RESP 17; TEMP 36.8; O2SAT 100; BMI 22.8
[2021-04-26 12:07] VITALS: BP 123/68; PULSE 76; RESP 17; TEMP 36.8; O2SAT 100
--- NOTE | 2021-04-26 12:51 | HMH.EDUTC ---
[facility] [place] Clinical Impression: Metatarsal fracture Qualifiers: Encounter type: initial encounter Metatarsal bone: fifth Fracture type: closed Fracture alignment: nondisplaced Laterality: left Qualified Code(s): S92.355A - Nondisplaced fracture of fifth metatarsal bone, left foot, initial encounter for closed fracture Disposition: Home, Self-Care Condition on Discharge: Good Instructions: DI for Foot Fracture Additional Instructions: Keep appt with Dr Hill next Thursday. Wear walking boot, do not bear weight on foot Referrals: Cleveland Piedra [Primary Care Provider] - Alicia Hill DPM [Staff Physician] - Forms: Work/School Release Time of Disposition: 12:56 Medical Decision Making - Joaquín Inquiry Pt receiving controlled substance: No Vital Signs: 04/26/21 11:32 04/26/21 12:03 04/26/21 12:07 Temperature 98.3 F 98.3 F 98.3 F Temperature Source Oral Oral Pulse Rate 76 Pulse Rate [Left Radial] 98 H 76 Respiratory Rate 18 17 17 Blood Pressure 123/68 Blood Pressure [Left Arm] 136/65 123/68 Blood Pressure Mean [Left Arm] 88 86 Blood Pressure Source [Left Arm] Automatic Cuff Blood Pressure Position [Left Arm] Sitting 02 Sat by Pulse Oximetry 99 100 Oxygen Delivery Method Room Air - Radiology Data #1 Image(s): Foot/Toes Image Reviewed: Yes I have reviewed radiologist's interpretation Preliminary Findings: Abnormal FINDINGS: There is a nondisplaced transverse fracture involving the proximal aspect of the 5th metatarsal. There is good alignment of the fracture fragments. Postsurgical changes distal tib fib. Other findings:None. IMPRESSION: Nondisplaced fracture proximal aspect of the 5th metatarsal - Physician Consults Physician Consulted: Liz Time: 12:45 Reason -: Podiatry Eval/Care Comment/Response: Walking boot, crutches (patient has both), non weight-bearing, patient has appt with her on Thursday already [place] [facility] [place] - General Stated complaint: lt ankle pain Time Seen by Provider: 04/26/21 12:15 Mode of Arrival: Ambulatory Source of Information: Patient Limitations: No Limitations Description of Symptoms (Recalled from Triage Doc. by RN): Pt states that he was walking and his left foot bent forward and he heard a loud popping sound. Pt has a previous stress fracture from 02/20 and surgery on same foot. 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 He stepped from the van, planted his left foot on the ground, went to step forward and had pain in the outer portion of his left foot. He felt and heard a pop. He states that on February 20, he injured this same foot when he was attacked by a dog while delivering mail. He sees Dr Hill regularly for chronic pain in his foot and recently had an MRI that showed a stress fracture of the left 5th metatarsal. Onset (ago): hour(s) (1) Location: left, lower extremity Relieving factors: immobilization Exacerbating factors: movement Treatments prior to arrival: none - Related Data Home Medications Medication Instructions Recorded Confirmed atorvastatin 20 mg tablet 20 mg PO DAILY 10/23/19 03/18/21 carbidopa 25 mg-levodopa 100 mg 1 tab PO QHS 10/23/19 03/18/21 tablet gabapentin 800 mg tablet 800 mg PO BID 10/23/19 03/18/21 mirtazapine 45 mg tablet 45 mg PO DAILY 10/23/19 03/18/21 prazosin 2 mg capsule 2 mg PO QHS 10/23/19 03/18/21 testosterone cypionate 200 mg/mL 200 mg IM QMONTH ml 01/25/20 03/18/21 intramuscular oil propranolol 10 mg tablet 10 mg PO QHS tab 07/05/20 03/18/21 Previous Rx's Medication Instructions Recorded diclofenac sodium 1 % topical gel 4 g TOPICAL QID PRN #30 g 03/27/20 meloxicam 7.5 mg tablet 7.5 mg PO DAILY #30 tab 03/27/20 tr
== END 2021-04-26 13:07 | disposition home or self-care (01) ==
PROVIDERS: Emergency Provider Physician Assistant; PCP Family Medicine
DX: S92.355A Nondisplaced fracture of fifth metatarsal bone, left foot, initial encounter for closed fracture (principal); X50.0XXA Overexertion from strenuous movement or load, initial encounter; Y92.69 Other specified industrial and construction area as the place of occurrence of the external cause; Y99.0 Civilian activity done for income or pay
CPT/HCPCS: 73630; 99202; G0463

== ENCOUNTER → 2021-04-30 16:13 | Outpatient (CLI) | payer OTHER, SELFPAY ==
[2021-04-30 17:17] LABS: Basophils % 0.4 % (0.1-2.0); Eosinophils # 0.1 K/mm3 (0.0-0.4); Eosinophils % 2.8 % (0.1-12.0); Hematocrit 42.6 % (42.0-52.0); Hemoglobin 14.5 g/dL (14.1-18.0); Lymphocytes # 1.7 K/mm3 (0.7-4.5); Lymphocytes % 33.1 % (10-50); Mean Corpuscular Hemoglobin 31.9 pg (27.0-31.2); Mean Corpuscular Volume 93.9 fl (80-94); Mean Platelet Volume 8.1 fl (7.4-10.4); Monocytes # 0.4 K/mm3 (0.1-1.0); Monocytes % 7.8 % (1.7-9.3); Neutrophils # 2.8 K/mm3 (1.8-7.8); Neutrophils % 55.9 % (37.0-80.0); Platelet Count 203 K/mm3 (142-424); Red Blood Count 4.53 M/mm3 (4.60-6.20); Red Cell Distribution Width 13.1 % (11.5-17.5)
[2021-04-30 19:44] LABS: Alanine Aminotransferase 19 U/L (12-78); Albumin Level 4.6 g/dl (3.5-5.0); Albumin/Globulin Ratio 1.9 (1.1-1.8); Alkaline Phosphatase 101 U/L (38-126); Anion Gap 12.4 mEq/L (5-15); Aspartate Amino Transferase 27 U/L (17-59); Bilirubin,Total 0.6 mg/dl (0.2-1.3); Blood Urea Nitrogen 18 mg/dl (9-20); Calcium 9.3 mg/dl (8.4-10.2); Carbon Dioxide 29 mmol/L (22.0-30.0); Chloride 103 mmol/L (98-107); Estimated Glomerular Filt Rate 69 ml/min (>60); GFR (African American) 84 ML/MIN (>60); Globulin 2.4 g/dL (1.3-3.2); Glucose 84 mg/dl (74-100); Potassium 4.4 mmoL/L (3.5-5.1); Sodium 140 mmol/L (136-145)
[2021-04-30 20:01] LABS: 25-OH Vitamin D, Total 41.9 ng/mL (30-100)
== END ==
PROVIDERS: Visit Provider Podiatrist
DX: Z01.818 Encounter for other preprocedural examination (principal); U07.1 COVID-19
CPT/HCPCS: 36415; 80053; 82306; 85025; U0003

== ENCOUNTER → 2021-05-27 08:54 | Outpatient (CLI) | payer OTHER, SELFPAY ==
--- NOTE | 2021-05-27 08:57 | XR_ITS ---
PROCEDURE: XR ANKLE WT BEARING LT MIN 3V CLINICAL INDICATION: ankle pain COMPARISON: CR XR ANKLE LT MIN 3V from 07/27/2020 CR XR ANKLE LT 2V from 07/27/2020 CR XR ANKLE WT BEARING LT MIN 3V from 08/23/2020 CR XR ANKLE WT BEARING LT MIN 3V from 02/19/2021 FINDINGS: Priors syndesmotic repair distal tib fib with lateral fibular bone plate and translucent fixator with medial metallic button at the tibia. [place] screw is present at the distal fibula. There is good alignment. The ankle mortise is preserved and the talar dome has an unremarkable appearance. IMPRESSION: Postsurgical changes with good alignment and no acute finding Dictated by: Santos Galdamez MD 05/27/2021 11:23 Santos Galdamez MD in [place] 05/27/2021 11:23
--- NOTE | 2021-05-27 08:57 | XR_ITS ---
PROCEDURE: XR FOOT WT BEARING LT 3V CLINICAL INDICATION: foot pain Follow-up fracture COMPARISON: CR XR FOOT WT BEARING RT 3V from 03/27/2020 CR XR FOOT WT BEARING LT 3V from 08/23/2020 CR XR FOOT WT BEARING LT 3V from 02/19/2021 CR XR FOOT LT MIN 3V from 04/26/2021 FINDINGS: Nondisplaced transverse fracture once again noted involving the base of the 5th metatarsal at the diaphyseal metaphyseal junction. There is suggestion of some minimal callus formation laterally with some remodeling at the fracture site medially. Fracture line is still visible. There is good alignment. There is a bone plate at the distal fibula by malleolar anchors The joint spaces are well-preserved. No significant degenerative/arthritic changes. No erosive changes evident. Other findings:None. IMPRESSION: Healing nondisplaced 5th metatarsal fracture Dictated by: Santos Galdamez MD 05/27/2021 11:22 Santos Galdamez MD in [place] 05/27/2021 11:22
== END ==
PROVIDERS: PCP Family Medicine; Visit Provider Podiatrist
DX: M79.672 Pain in left foot (principal); M84.375A Stress fracture, left foot, initial encounter for fracture
CPT/HCPCS: 73610; 73630

== ENCOUNTER → 2021-06-24 08:42 | Outpatient (CLI) | payer OTHER, SELFPAY ==
--- NOTE | 2021-06-24 08:47 | XR_ITS ---
PROCEDURE: XR FOOT WT BEARING LT 3V CLINICAL INDICATION: fracture followup COMPARISON: CR XR FOOT WT BEARING LT 3V from 08/23/2020 CR XR FOOT WT BEARING LT 3V from 02/19/2021 CR XR FOOT LT MIN 3V from 04/26/2021 CR XR FOOT WT BEARING LT 3V from 05/27/2021 FINDINGS: Nondisplaced transverse fracture involves the base of the 5th metatarsal at the diaphyseal metaphyseal junction. There is some developing callus formation laterally. Fracture line is still fairly prominent. There is good alignment. Postsurgical changes are present at the ankle. The joint spaces are well-preserved. No significant degenerative/arthritic changes. No erosive changes evident. Other findings:None. IMPRESSION: Healing fracture base of 5th metatarsal Dictated by: Santos Galdamez MD 06/24/2021 10:23 Santos Galdamez MD in [place] 06/24/2021 10:23
== END ==
PROVIDERS: PCP Family Medicine; Visit Provider Podiatrist
DX: S99.192A Other physeal fracture of left metatarsal, initial encounter for closed fracture (principal); T14.8XXA Other injury of unspecified body region, initial encounter
CPT/HCPCS: 73630

== ENCOUNTER → 2021-07-24 09:57 | Outpatient (CLI) | payer OTHER, SELFPAY ==
--- NOTE | 2021-07-24 10:00 | XR_ITS ---
PROCEDURE: XR FOOT WT BEARING LT 3V CLINICAL INDICATION: 5TH MET FX F/U COMPARISON: CR XR FOOT WT BEARING LT 3V from 02/19/2021 CR XR FOOT LT MIN 3V from 04/26/2021 CR XR FOOT WT BEARING LT 3V from 05/27/2021 CR XR FOOT WT BEARING LT 3V from 06/24/2021 FINDINGS: There is a healing nondisplaced transverse fracture involving the proximal shaft of the 5th metatarsal at the proximal diaphyseal region. Developing callus formation noted Fracture line is still visible. Other findings:Postsurgical changes of ankle IMPRESSION: No change nondisplaced healing fracture proximal 5th metatarsal Dictated by: Santos Galdamez MD 07/24/2021 11:58 Santos Galdamez MD in [place] 07/24/2021 11:58
== END ==
PROVIDERS: PCP Family Medicine; Visit Provider Podiatrist
DX: Q66.72 Congenital pes cavus, left foot (principal); S99.192K Other physeal fracture of left metatarsal, subsequent encounter for fracture with nonunion; M84.375K Stress fracture, left foot, subsequent encounter for fracture with nonunion; T14.8XXA Other injury of unspecified body region, initial encounter
CPT/HCPCS: 73630

== ENCOUNTER → 2021-08-09 12:47 | Outpatient (CLI) | payer OTHER, SELFPAY ==
--- NOTE | 2021-08-09 12:48 | CT_ITS ---
PROCEDURE: CT FOOT LT WO CON CLINICAL HISTORY: fracture evaluation Nonhealing fracture COMPARISON: CR XR FOOT WT BEARING LT 3V from 02/19/2021 CR XR FOOT LT MIN 3V from 04/26/2021 CR XR FOOT WT BEARING LT 3V from 07/24/2021 TECHNIQUE: Axial images obtained with sagittal and coronal reformats. All CT scans at the facility use one or more dose reduction, viz: automated exposure control, ma/kV adjustment per patient size (including targeted exams where dose is matched to indication, i.e. head), or iterative reconstruction technique. FINDINGS: There is a transverse fracture involving the proximal shaft of the 5th metatarsal. There is healing of the fracture along its dorsal and medial surface. Fracture line is still visible along its plantar and lateral aspect. Much of the fracture line is still visible. There is some minimal callus formation along the medial aspect of the fracture site. There is good alignment of the fracture fragments There has been prior syndesmotic repair at the distal tib fib and a small anchor screws present at the distal fibula. There is mild soft tissue swelling at the peroneal tendon area IMPRESSION: Incompletely healing fracture at the base of the 5th metatarsal with good alignment. Dictated by: Santos Galdamez MD 08/09/2021 16:36 Santos Galdamez MD in [place] 08/09/2021 16:36
== END ==
PROVIDERS: PCP Family Medicine; Visit Provider Podiatrist
DX: S92.355K Nondisplaced fracture of fifth metatarsal bone, left foot, subsequent encounter for fracture with nonunion (principal)
CPT/HCPCS: 73700

== ENCOUNTER → 2021-08-26 10:25 | Outpatient (CLI) | payer OTHER, SELFPAY ==
[2021-08-26 10:52] LABS: Basophils % 0.8 % (0.1-2.0); Eosinophils # 0.1 K/mm3 (0.0-0.4); Eosinophils % 1.7 % (0.1-12.0); Hematocrit 45.9 % (42.0-52.0); Hemoglobin 15.6 g/dL (14.1-18.0); Lymphocytes # 1.6 K/mm3 (0.7-4.5); Lymphocytes % 32.8 % (10-50); Monocytes # 0.5 K/mm3 (0.1-1.0); Monocytes % 9.4 % (1.7-9.3); Neutrophils # 2.6 K/mm3 (1.8-7.8); Neutrophils % 55.4 % (37.0-80.0); Platelet Count 192 K/mm3 (142-424); Red Blood Count 4.73 M/mm3 (4.60-6.20); Red Cell Distribution Width 13.6 % (11.5-17.5); White Blood Count 4.8 K/mm3 (4.8-10.8)
--- NOTE | 2021-08-26 10:55 | ECG_ITS ---
APPROVED REPORT Exam: Resting ECG HR:67 bpm ECG Measurements Heart Rate 67 AXES CO 126 P 43 QRSd 80 QRS 87 QT 362 T 19 QTc 382 Conclusion Normal sinus rhythm Normal ECG Electronically signed by : Lb Geronimo MD 08/26/2021 21:19:29
[2021-08-26 11:51] LABS: Alanine Aminotransferase 23 U/L (12-78); Albumin Level 4.2 g/dl (3.5-5.0); Albumin/Globulin Ratio 1.6 (1.1-1.8); Alkaline Phosphatase 112 U/L (38-126); Anion Gap 10.5 mEq/L (5-15); Aspartate Amino Transferase 25 U/L (17-59); Bilirubin,Total 0.5 mg/dl (0.2-1.3); Blood Urea Nitrogen 10 mg/dl (9-20); Calcium 9.5 mg/dl (8.4-10.2); Carbon Dioxide 32 mmol/L (22.0-30.0); Chloride 103 mmol/L (98-107); Estimated Glomerular Filt Rate 78 ml/min (>60); GFR (African American) 94 ML/MIN (>60); Globulin 2.6 g/dL (1.3-3.2); Glucose 94 mg/dl (74-100); Potassium 4.5 mmoL/L (3.5-5.1); Sodium 141 mmol/L (136-145); Total Protein,Serum 6.8 g/dl (6.3-8.2)
== END ==
PROVIDERS: Visit Provider Podiatrist
DX: S92.355K Nondisplaced fracture of fifth metatarsal bone, left foot, subsequent encounter for fracture with nonunion; S99.192K Other physeal fracture of left metatarsal, subsequent encounter for fracture with nonunion; M84.375K Stress fracture, left foot, subsequent encounter for fracture with nonunion; Z01.818 Encounter for other preprocedural examination; Z20.822 Contact with and (suspected) exposure to COVID-19
CPT/HCPCS: 36415; 80053; 85025; 93005; C9803; U0003; U0005

== ENCOUNTER → 2021-09-03 12:26 | Outpatient (CLI) | payer OTHER, SELFPAY | PROVIDERS: Visit Provider Podiatrist | DX: Z01.812 Encounter for preprocedural laboratory examination (principal); S92.355K Nondisplaced fracture of fifth metatarsal bone, left foot, subsequent encounter for fracture with nonunion; S99.192K Other physeal fracture of left metatarsal, subsequent encounter for fracture with nonunion; Z20.822 Contact with and (suspected) exposure to COVID-19 | CPT/HCPCS: 36415; C9803; U0003; U0005 ==

== ENCOUNTER 2021-09-04 06:08 | Day surgery (SDC) | payer OTHER, SELFPAY ==
[2021-08-26 14:00] VITALS: BMI 24.3
[2021-09-04 06:24] VITALS: BP 134/47; PULSE 94; RESP 18; TEMP 36.3; O2SAT 96
--- NOTE | 2021-09-04 07:55 | HMH.ANESCL ---
[facility] Anesthesia Checklist - Structural Data Admitted From: Home Planned Operative Procedure/s: orif l 5th metatarsal Consent for Planned Operative Procedure(s) Verified: Yes - Additional verifications Anesthesia Reactions: Yes (NAUSEA) Hx Blood Transfusions: No Blood Transfusion Reaction: No - Airway Assessment C-Spine Mobility Assessed: Yes TMJ Mobility Assessed: Yes Dentition: Dentures-good fit - Neurological Assessment Level of Consciousness: Awake, Alert, Appropriate - Anesthesia Plan Anesthesia Risk discussed: Yes Anesthesia Plan: Verified ASA Class: II Anesthesia Type: MAC w/Block - Preoperative Comments Pre-Operative Comments: pt want nerve block/doesnt want GA. risks and benefits discussed [facility] History I have reviewed the patient's past medical history: Yes Medical History: Reports:: Anxiety, Depression, Gastroesophageal Reflux Disease(GERD), Hyperlipidemia, Migraine, MRSA Denies:: Cancer, Diabetes Mellitus Type 1, Diabetes Mellitus Type 2, Internal Pacemaker, Seizures *Have you ever received a pneumonia vaccine?: No *Have you received a flu vaccine this season?: No Other Medical History: Reports: Arthritis, Other. Denies: Blood Transfusion Reaction Anesthesia experience/problems:: none Laterality Cases: Right: Arthroscopy Knee, Carpal Tunnel Release Other Surgeries: Yes: Other. No: Pacemaker Amputation: No Fractures: No - *Social History Last grade of school completed: High school graduate Smoking Status: Never smoker Alcohol Intake: never Alcohol Intake Frequency:: other Substance Use Type: denies use *Occupational Status:: employed Housing: house Household Members: family *Travel in the last 8 weeks: None - Psychiatric History Pschychiatric History:: Reports:: Anxiety, Depression Family Hx:: Cancer
[2021-09-04 08:07] VITALS: TEMP 43
--- NOTE | 2021-09-04 08:30 | XR_ITS ---
PROCEDURE: XR FOOT LT MIN 3V CLINICAL INDICATION: Post op ORIF COMPARISON: CR XR FOOT WT BEARING LT 3V from 05/27/2021 CR XR FOOT WT BEARING LT 3V from 06/24/2021 CR XR FOOT WT BEARING LT 3V from 07/24/2021 CR XR FOOT LT 2V from 09/04/2021 FINDINGS: Status post ORIF 5th metatarsal fracture in good alignment. A longitudinal screw is present. Fine bony details obscured by the overlying splint. IMPRESSION: Good alignment status post ORIF 5th metatarsal fracture Dictated by: Santos Galdamez MD 09/04/2021 18:16 Santos Galdamez MD in [place] 09/04/2021 18:16
--- NOTE | 2021-09-04 08:47 | XR_ITS ---
PROCEDURE: XR FOOT LT 2V CLINICAL INDICATION: LT 5TH METARSAL FX COMPARISON: CR XR FOOT LT MIN 3V from 04/26/2021 CR XR FOOT WT BEARING LT 3V from 05/27/2021 CR XR FOOT WT BEARING LT 3V from 06/24/2021 CR XR FOOT WT BEARING LT 3V from 07/24/2021 FINDINGS: Fluoroscopy time: 2.17 minutes. A longitudinal screw is placed at the base of the 5th metatarsal stabilizing the proximal 5th metatarsal fracture with good alignment Other findings:None. IMPRESSION: Status post ORIF 5th metatarsal with fluoroscopic assistance Dictated by: Santos Galdamez MD 09/04/2021 18:29 Santos Galdamez MD in [place] 09/04/2021 18:29
[2021-09-04 08:55] VITALS: BP 103/69; PULSE 84; RESP 13; TEMP 36.8; O2SAT 96
[2021-09-04 09:05] VITALS: BP 109/69; PULSE 81; RESP 19; TEMP 36.3; O2SAT 95
--- NOTE | 2021-09-04 09:09 | HMH.OPNOTE ---
Date of procedure: 09/04/21 Pre-op Diagnosis:: 1. 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 Pes cavus Post-op Diagnosis:: Same Procedure performed:: 1. Left 5th metatarsal fracture ORIF 2. Left 5th met fracture non-union revision 3. Left calcaneal autograft bone harvest (bone marrow aspirate) 4. Left eliecer of graft 5. Left application of posterior splint Surgeon:: Alicia Hill DPM WAXER TENDER:: Kwame Means Anesthesia: MAC, regional (Left popliteal block) Estimated blood loss (mL): 5 Clinical Note:: Pre-op: Patient is a 55M with a history of left peroneal tendon tear s/p repair. Most recently he had a stress fracture of the left 5th metatarsal, seen on MRI 02/27/21. He was being treated conservatively. Patient did get the left custom AFO from [facility]. He has not worn yet due to fracture injury. At work 04/26 from twisted the foot on a curb of the sidewalk and heard a pop. He went to [facility] that day. Left foot x-rays 3 views taken 04/26/21, evaluated by myself. Report noted. FINDINGS: There is a nondisplaced transverse fracture involving the proximal aspect of the 5th metatarsal. There is good alignment of the fracture fragments. Postsurgical changes distal tib fib. Other findings: None. IMPRESSION: Nondisplaced fracture proximal aspect of the 5th metatarsal. Plan was for ORIF fifth metatarsal however patient tested positive for Covid. Decision made to treat conservatively. Has had subsequent x-rays 06/24 and 07/25/2021 which show no change to the fracture. Recent CT 08/09/2021 shows incomplete healing of the fracture. Given an injury was 04/26/2021 and patient has still not made progress with 100% bone stimulator usage compliance, we discussed surgery. All risks and benefits were discussed including but not limited to: damage to blood vessels and nerves, bleeding, infection, wound complications, delayed, mal or non-union of bone, post-traumatic arthritis, need for further surgery, implant failure, need for removal of implant, prolonged or permanent swelling of the extremity, prolonged or permanent pain or deformity, CRPS/RSD, DVT/PE, and anesthetic complications including . No guarantees were given. All questions fully answered. The patient verbalized understanding and agreed to proceed with surgery. Consent was obtained. Medical clearance-saw PCP, Dr. Cleveland Piedra 07/12/21. Has a fracture boot, crutches and walker at home. Operative findings:: Left fifth metatarsal [place] fracture nonunion. On the lateral cortex there was no healing evident. Some healing noted to the medial cortex, fibrotic callus noted. Bone was soft. No signs of infection. Pes cavus deformity with thickened callus skin under the plantar lateral fifth metatarsal. Operative note:: On this date and time patient was deemed an appropriate surgical candidate. With informed consent signed, pre-op regional popliteal block given by anesthesia. The patient was taken to the operating theater. The patient was positioned supine. General anesthesia was induced. IV Ancef given. Tourniquet was applied to the left mid-calf. The left lower extremity was prepped and draped in normal sterile fashion. Left Calcaneal Autograft [place], Bone Marrow Aspiration: Attention was directed to the lateral foot, where intra-op fluoroscopy was used to map out the 5th metatarsal base on both the AP, MO and lateral views. 15 blade was used to make a stab incision over the calcaneal body under intraoperative fluoroscopy. Dissection down to level of bone. In standard technique Accumed bone graft harvester drill inserted and some bone was extracted. It was mixed with BMA mix. 6 cc of blood was withdrawn, mixed with Ignite for BMA to insert into nonunion site. Left 5th Metatarsal Non-union, [place] Fracture ORIF: Attention was directed to the lateral foot, where intra-op fluoroscopy was used to map out the 5th metatarsal base on both the AP, MO and lateral views. 15' blade to make an incision directly over the fracture site. Some call
[2021-09-04 09:20] VITALS: BP 110/69; PULSE 75; RESP 17; O2SAT 96
--- NOTE | 2021-09-04 10:01 | SUR.OPER ---
[id number] family notified of start of procedure
== END 2021-09-04 09:28 | disposition home or self-care (01) ==
LOC: OR 06:09
PROVIDERS: PCP Family Medicine; Visit Provider Podiatrist
PROC: (CPT 28322; principal; 2021-09-04 07:30)
DX: S92.355K Nondisplaced fracture of fifth metatarsal bone, left foot, subsequent encounter for fracture with nonunion (principal); S99.192K Other physeal fracture of left metatarsal, subsequent encounter for fracture with nonunion; M79.605 Pain in left leg; M79.672 Pain in left foot; Y92.69 Other specified industrial and construction area as the place of occurrence of the external cause; W10.1XXD Fall (on)(from) sidewalk curb, subsequent encounter
CPT/HCPCS: 28322; 73620; 73630; 76000; 96374; C1713; C1762; J2704

== ENCOUNTER → 2021-10-16 13:22 | Outpatient (CLI) | payer OTHER, SELFPAY ==
--- NOTE | 2021-10-16 13:26 | XR_ITS ---
PROCEDURE: XR FOOT WT BEARING LT 3V CLINICAL INDICATION: post-op COMPARISON: CR XR FOOT WT BEARING LT 3V from 06/24/2021 CR XR FOOT WT BEARING LT 3V from 07/24/2021 CR XR FOOT LT MIN 3V from 09/04/2021 CR XR FOOT LT 2V from 09/04/2021 FINDINGS: Status post screw fixation proximal 5th metatarsal fracture with good alignment. Fracture line is less apparent with some callus formation noted laterally. There is a bone plate along the distal fibula and an anchor screw at the lateral malleolar region IMPRESSION: Good alignment healing fracture status post screw fixation 5th metatarsal Dictated by: Santos Galdamez MD 10/16/2021 15:48 Santos Galdamez MD in [facility] 10/16/2021 15:48
== END ==
PROVIDERS: PCP Family Medicine; Visit Provider Podiatrist
DX: Z98.890 Other specified postprocedural states; S99.192K Other physeal fracture of left metatarsal, subsequent encounter for fracture with nonunion; G89.18 Other acute postprocedural pain; R60.9 Edema, unspecified; M79.672 Pain in left foot; R20.2 Paresthesia of skin; Z02.6 Encounter for examination for insurance purposes
CPT/HCPCS: 73630

== ENCOUNTER → 2021-11-20 12:01 | Outpatient (CLI) | payer OTHER, SELFPAY ==
--- NOTE | 2021-11-20 12:04 | XR_ITS ---
FINAL REPORT CLINICAL HISTORY: follow up fracture/ ORIF COMPARISON: No prior for comparison. FINDINGS: LEFT FOOT FINDINGS: Three weightbearing views demonstrate a screw at the base of the fifth metatarsal. There is a partially healed transverse fracture at the base of the fifth metatarsal. There is a side plate and screws securing the distal fibula. IMPRESSION: Screw securing a healing fracture at the base of the fifth metatarsal. The fracture line remains visible. Continued follow-up is recommended. Reviewed, Interpreted and Dictated by Fitz Akbar MD Transcribed by Erika Negro Authenticated by Fitz Akbar MD on 11/20/2021 03:13:35 PM [facility]
== END ==
PROVIDERS: PCP Family Medicine; Visit Provider Podiatrist
DX: S99.192A Other physeal fracture of left metatarsal, initial encounter for closed fracture (principal); Z98.890 Other specified postprocedural states
CPT/HCPCS: 73630

== ENCOUNTER → 2021-12-23 15:19 | Outpatient (CLI) | payer OTHER, SELFPAY ==
--- NOTE | 2021-12-23 15:23 | XR_ITS ---
FINAL REPORT CLINICAL HISTORY: fracture evaluation COMPARISON: October 16, 2021 FINDINGS: LEFT FOOT: Three views of the left foot were obtained. There is postoperative change to the proximal 5th metatarsal. There is a persistent fracture of the proximal aspect of the 5th metatarsal. There is widening of the fracture line. There is probable fusion medially but lack of fusion laterally. IMPRESSION: Postop change to the 5th metatarsal with interval widening of the fracture line. Reviewed, Interpreted and Dictated by Silver Wu III, MD Transcribed by Wil Vanegas Authenticated by Silver Wu III, MD on 12/24/2021 07:12:50 AM [facility]
== END ==
PROVIDERS: PCP Family Medicine; Visit Provider Podiatrist
DX: S99.192A Other physeal fracture of left metatarsal, initial encounter for closed fracture (principal); Z98.890 Other specified postprocedural states
CPT/HCPCS: 73630

== ENCOUNTER → 2022-01-10 14:41 | Outpatient (CLI) | payer OTHER, SELFPAY ==
--- NOTE | 2022-01-10 14:45 | CT_ITS ---
FINAL REPORT CLINICAL HISTORY: FRACTURE EVALUATION NOT HEALING COMPARISON: Plain radiographs dated September 04, 2021 FINDINGS: CT LEFT FOOT WITHOUT CONTRAST Technique: Axial images through the left foot were performed by computed tomography. Sagittal and coronal reconstruction images were performed. This study was performed with techniques to keep radiation doses as low as reasonably achievable (ALARA). Individualized dose reduction techniques using automated exposure control or adjustment of mA and/or kV according to the patient's size were employed. There is an orthopedic screw through the base of the 5th metatarsal. The fracture line is still visible consistent with partial nonunion. There is sideplate and screws securing the distal fibula. 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 Reviewed, Interpreted and Dictated by Fitz Akbar MD Transcribed by Wil Vanegas Authenticated by Fitz Akbar MD on 01/10/2022 04:36:31 PM [facility]
== END ==
PROVIDERS: PCP Family Medicine; Visit Provider Podiatrist
DX: S99.192A Other physeal fracture of left metatarsal, initial encounter for closed fracture (principal); G89.18 Other acute postprocedural pain; Z98.890 Other specified postprocedural states
CPT/HCPCS: 73700

== ENCOUNTER → 2022-04-10 10:26 | Outpatient (CLI) | payer OTHER, SELFPAY ==
--- NOTE | 2022-04-10 10:33 | XR_ITS ---
FINAL REPORT CLINICAL HISTORY: postop/fracture eval COMPARISON: 12/23/2021 FINDINGS: LEFT FOOT Three views were obtained. Again identified are postoperative changes from ORIF of the 5th metatarsal. The hardware appears intact. There has been only minimal interval healing of the fracture. No new osseous abnormality is identified. There is mild degenerative joint disease which is stable. There are postoperative changes of the ankle. IMPRESSION: Postsurgical changes with minimal interval healing of the fracture. Reviewed, Interpreted and Dictated by Sheeba Escobedo MD Transcribed by Domenica Yun Authenticated by Sheeba Escobedo MD on 04/10/2022 01:19:09 PM [facility]
== END ==
PROVIDERS: PCP Family Medicine; Visit Provider Podiatrist
DX: Z98.890 Other specified postprocedural states; M19.072 Primary osteoarthritis, left ankle and foot; S99.1 Physeal fracture of metatarsal; M77.52 Other enthesopathy of left foot and ankle; M77.42 Metatarsalgia, left foot; M76.72 Peroneal tendinitis, left leg; M25.372 Other instability, left ankle
CPT/HCPCS: 73630

== ENCOUNTER → 2022-09-22 08:17 | Outpatient (CLI) | payer OTHER, SELFPAY ==
--- NOTE | 2022-09-22 08:21 | XR_ITS ---
FINAL REPORT CLINICAL HISTORY: pain, healing FINDINGS: LEFT CALCANEUS 2 views were obtained. There is no acute fracture or dislocation. 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 The joint spaces are intact. There is no soft tissue abnormality. IMPRESSION: Mild Elisa's deformity. No acute bony abnormality. Reviewed, Interpreted and Dictated by Fitz Akbar MD Transcribed by Christi Urrutia Authenticated and [facility]
--- NOTE | 2022-09-22 08:21 | XR_ITS ---
FINAL REPORT CLINICAL HISTORY: pain, healing COMPARISON: 04/10/2022 FINDINGS: LEFT FOOT Three views of the left foot demonstrate no acute fracture or dislocation. There is an orthopedic screw securing a healed fracture deformity at the base of the 5th metatarsal. There is a sideplate and screws securing the distal fibula. There is an accessory navicular. The soft tissues are unremarkable. IMPRESSION: Postoperative changes as above with no acute bony abnormality. Reviewed, Interpreted and Dictated by Fitz Akbar MD Transcribed by Christi Urrutia Authenticated and [facility]
== END ==
PROVIDERS: PCP Family Medicine; Visit Provider Podiatrist
DX: S92.355K Nondisplaced fracture of fifth metatarsal bone, left foot, subsequent encounter for fracture with nonunion (principal); M25.372 Other instability, left ankle; M66.88 Spontaneous rupture of other tendons, other sites; S86.312A Strain of muscle(s) and tendon(s) of peroneal muscle group at lower leg level, left leg, initial encounter; M20.41 Other hammer toe(s) (acquired), right foot; M20.42 Other hammer toe(s) (acquired), left foot; M21.6X1 Other acquired deformities of right foot; M21.6X2 Other acquired deformities of left foot
CPT/HCPCS: 73630; 73650

== ENCOUNTER → 2022-11-13 16:35 | Outpatient (CLI) | payer BC, SELFPAY ==
[2022-11-13 17:12] LABS: Basophils # 0.1 K/mm3 (0-0.2); Basophils % 2.3 % (0.1-2.0); Eosinophils # 0.1 K/mm3 (0.0-0.4); Eosinophils % 1.9 % (0.1-12.0); Hematocrit 42.8 % (42.0-52.0); Hemoglobin 14.2 g/dL (14.1-18.0); Lymphocytes # 1.1 K/mm3 (0.7-4.5); Lymphocytes % 25.4 % (10-50); Mean Corpuscular HGB Conc 33.3 g/dL (31.8-35.4); Mean Corpuscular Volume 96.1 fl (80-94); Monocytes # 0.4 K/mm3 (0.1-1.0); Monocytes % 10.3 % (1.7-9.3); Neutrophils # 2.5 K/mm3 (1.8-7.8); Neutrophils % 60.2 % (37.0-80.0); Platelet Count 203 K/mm3 (142-424); Red Blood Count 4.45 M/mm3 (4.60-6.20); Red Cell Distribution Width 13.1 % (11.5-17.5); White Blood Count 4.2 K/mm3 (4.8-10.8)
[2022-11-15 12:20] LABS: PSA, Free <0.02 ng/mL; Prostate Specific Ag <0.1 ng/mL (0.0-4.0)
[2022-11-24 10:59] LABS: Testosterone, Total, LC/MS 45
== END ==
PROVIDERS: Physician Assistant Medical; PCP Family Medicine; Visit Provider Nurse Practitioner Family
DX: F64.9 Gender identity disorder, unspecified (principal)
CPT/HCPCS: 36415; 84153; 84154; 84403; 85025

== ENCOUNTER → 2023-06-10 16:55 | Outpatient (CLI) | payer BC, SELFPAY ==
--- NOTE | 2023-06-10 16:58 | XR_ITS ---
PROCEDURE INFORMATION: Exam: XR Left Knee Exam date and time: 06/10/2023 4:59 PM Age: 57 years old Clinical indication: Pain; Knee; Left; Additional info: Lt knee pain TECHNIQUE: Imaging protocol: Radiologic exam of the left knee. Views: 3 views. COMPARISON: CR XR CALCANEUS LT MIN 2V 09/22/2022 8:25 AM FINDINGS: Bones/joints: Severe medial joint space narrowing with subchondral sclerosis, radiolucent cystic changes, and mild bone hypertrophy. Lateral joint space is slightly widened probably due to genu varus. Bone hypertrophy affects the posterior patella with slight lateral subluxation of the patella. No fractures, dislocations, or focal bone lesions. No joint effusion. Soft tissues: No soft tissue gas, radiopaque foreign bodies, or masses. IMPRESSION: Moderate to severe osteoarthritis in the left knee, especially the medial compartment.
== END ==
PROVIDERS: PCP Family Medicine; Visit Provider Orthopaedic Surgery
DX: M25.562 Pain in left knee (principal)
CPT/HCPCS: 73562

== ENCOUNTER → 2023-08-13 23:21 | Outpatient (CLI) | payer BC, SELFPAY ==
[2023-08-13 18:43] LABS: Basophils % 0.4 % (0.1-2.0); Eosinophils # 0.1 K/mm3 (0.0-0.4); Eosinophils % 1.1 % (0.1-12.0); Lymphocytes # 1.1 K/mm3 (0.7-4.5); Lymphocytes % 19.5 % (10-50); Mean Corpuscular HGB Conc 32.1 g/dL (31.8-35.4); Mean Corpuscular Hemoglobin 31.3 pg (27.0-31.2); Mean Corpuscular Volume 97.6 fl (80-94); Mean Platelet Volume 9.4 fl (7.4-10.4); Monocytes # 0.4 K/mm3 (0.1-1.0); Monocytes % 7.2 % (1.7-9.3); Neutrophils % 71.8 % (37.0-80.0); Platelet Count 171 K/mm3 (142-424); Red Blood Count 5.43 M/mm3 (4.60-6.20); Red Cell Distribution Width 13.5 % (11.5-17.5); White Blood Count 5.5 K/mm3 (4.8-10.8)
[2023-08-13 18:50] LABS: Alanine Aminotransferase 25 U/L (12-78); Albumin Level 4.4 g/dl (3.5-5.0); Albumin/Globulin Ratio 1.7 (1.1-1.8); Alkaline Phosphatase 119 U/L (38-126); Anion Gap 13.8 mEq/L (5-15); Aspartate Amino Transferase 33 U/L (17-59); Bilirubin,Total 0.7 mg/dl (0.2-1.3); Blood Urea Nitrogen 14 mg/dl (9-20); Calcium 9.3 mg/dl (8.4-10.2); Carbon Dioxide 26 mmol/L (22.0-30.0); Chloride 103 mmol/L (98-107); Chol/HDL Ratio 5.7 (1-3.5); Cholesterol 221 mg/dl (140-200); Estimated Glomerular Filt Rate 69 ml/min (>60); GFR (African American) 83 ML/MIN (>60); Globulin 2.6 g/dL (1.3-3.2); Glucose 96 mg/dl (74-100); HDL Cholesterol 39 mg/dl (40-60); Potassium 3.8 mmoL/L (3.5-5.1); Sodium 139 mmol/L (136-145); Triglycerides 276 mg/dl (30-150); VLDL Cholesterol 55 mg/dL (0-40)
[2023-08-13 19:01] LABS: Direct LDL Cholesterol 135.25 mg/dL (100-129)
[2023-08-13 19:16] LABS: Hemoglobin A1C 5.1 % (4.0-6.0)
[2023-08-13 19:21] LABS: Thyroid Stimulating Hormone 1.61 uIU/mL (0.465-4.68)
== END ==
PROVIDERS: PCP Family Medicine; Visit Provider Student in an Organized Health Care Education/Training Program
DX: R10.9 Unspecified abdominal pain (principal); Z13.29 Encounter for screening for other suspected endocrine disorder; R81 Glycosuria
CPT/HCPCS: 80053; 80061; 83036; 84443; 85025; 87086

== ENCOUNTER → 2023-08-18 06:54 | Outpatient (CLI) | payer BC, SELFPAY ==
--- NOTE | 2023-08-18 07:02 | CT_ITS ---
FINAL REPORT TECHNIQUE: Axial images through the abdomen and pelvis were performed without contrast. This study was performed with techniques to keep radiation doses as low as reasonably achievable, (ALARA). Individualized dose reduction techniques using automated exposure control or adjustment of mA and/or kV according to the patient's size were employed. CLINICAL HISTORY: abd pain, hematuria FINDINGS: ABDOMEN: The lung bases are clear. The heart size is normal. There are several low-attenuation hepatic masses, favor cysts. The spleen is normal. No adrenal mass is identified. The aorta is normal in caliber. There is no significant free fluid or adenopathy. There are multiple less than 3 mm bilateral nonobstructing renal stones. There is no hydronephrosis. PELVIS: The appendix is not identified. The urinary bladder is unremarkable. There is no significant free fluid or adenopathy. IMPRESSION: Bilateral nephrolithiasis. Reviewed, Interpreted and Dictated by Silver Wu III, MD Transcribed by Domenica Yun Authenticated and [facility]
== END ==
PROVIDERS: PCP Family Medicine; Visit Provider Student in an Organized Health Care Education/Training Program
DX: R10.9 Unspecified abdominal pain (principal); R31.9 Hematuria, unspecified; Z87.442 Personal history of urinary calculi
CPT/HCPCS: 74176

== ENCOUNTER 2024-12-15 14:01 | Outpatient (CLI) | payer BC, SELFPAY ==
--- NOTE | 2024-12-15 14:05 | XR_ITS ---
FINAL REPORT CLINICAL HISTORY: knee pain COMPARISON: None FINDINGS: RIGHT KNEE Three views demonstrate no acute fracture or dislocation. There is advanced medial compartment joint space narrowing. Osteophyte formation is noted. There are small osteophytes along the undersurface of the patella. A small joint effusion is noted. No acute soft tissue abnormality is seen. IMPRESSION: Moderately advanced osteoarthritis, particularly at the medial compartment. Reviewed, Interpreted and Dictated by Fitz Akbar MD Transcribed by Margy Roberts Authenticated and [facility]
--- NOTE | 2024-12-15 14:05 | XR_ITS ---
FINAL REPORT CLINICAL HISTORY: Knee pain COMPARISON: 06/10/2023 FINDINGS: LEFT KNEE Three views demonstrate no acute fracture or dislocation. There is advanced medial compartment joint space narrowing. Subchondral sclerosis is noted with osteophyte formation. There are moderate osteophytes along the undersurface of the patella. No acute soft tissue abnormality is seen. IMPRESSION: Moderately advanced osteoarthritis. Reviewed, Interpreted and Dictated by Fitz Akbar MD Transcribed by Margy Roberts Authenticated and [facility]
== END 2024-12-15 23:59 | disposition home or self-care (01) ==
LOC: RAD 14:03
PROVIDERS: PCP Family Medicine; Visit Provider Physician Assistant
DX: M17.0 Bilateral primary osteoarthritis of knee (principal)
CPT/HCPCS: 73562